=== PATIENT | male | born 1960 | race Caucasian/White ===

== ENCOUNTER 2017-03-20 12:19 | Inpatient (IN) ==
[2017-03-20] MEDS ORDERED: DUONEB (A & A) INH ONE (12:26)
[2017-03-20] MEDS ORDERED: SOLU-MEDROL IV ONE (12:26)
[2017-03-20 12:59] LABS: ALLEN TEST YES; BE 0.6 mmoll (-3.0-3.0); BLOOD TYPE ARTERIAL; DRAW SITE R RADIAL; METHB 1.1 % (0.0-1.5); O2(CT) 20.3 mL/dL (15.0-23.0); PCO2(98.6) 29 mmHg (35-45); PO2(98.6) 67 mmHg (60-100); SAMPLE BLOOD; SAO2 99.2 % (95.0-100.0); THB 15.2 g/dL (11.5-17.4)
--- NOTE | 2017-03-20 13:36 | ED EKG INTERP ---
This chart was entered by Sandra Alvarez Scribe, acting as scribe for Raul Hall MD. EKG Interpretation - EKG Time of EKG reading by physician:: 12:58 EKG Read and Signed by:: Raul Hall Rate: 93 Rhythm: nsr Leonard: normal QRS: LVH IA Interval: normal ST Wave: non-specific ST changes This chart was documented by the indicated scribe, (Sandra Alvarez Scribe) and accurately reflects the services I performed and decisions made by meRafael Wenli X, MD, as attested by the provider's signature.
[2017-03-20 13:55] LABS: MANUAL DIFF NEEDED? NO
[2017-03-20 13:55] LABS: URINE CULTURE NEEDED? NO; URINE MICRO REVIEW NEEDED? NO; URINE SOURCE CLEAN CATCH
[2017-03-20 14:00] LABS: BILIRUBIN URINE NEGATIVE (NEGATIVE); BLOOD URINE NEGATIVE (NEGATIVE); COLOR YELLOW; GLUCOSE URINE NEGATIVE (NEGATIVE); LEUKOCYTES URINE NEGATIVE (NEGATIVE); NITRITE URINE NEGATIVE (NEGATIVE); PH URINE 7.5; PROTEIN URINE TRACE mg/dL (NEGATIVE); SP GRAVITY URINE 1.021; TURBIDITY URINE CLEAR (CLEAR); UROBILINOGEN URINE NORMAL (NORMAL)
[2017-03-20 14:01] LABS: BASO% 0.5 % (0.0-0.8); EOS# 0.05 X1000 (0.0-0.7); EOS% 0.7 % (0.0-10.0); HEMOGLOBIN 16.1 g/dL (14.0-18.0); IMM GRAN# 0.04 X1000 (0.0-0.04); IMM GRAN% 0.5 % (0.0-0.5); LYMPH# 0.85 X1000 (1.2-3.4); LYMPH% 11.6 % (20.5-51.1); MCH 31.1 PG (27-31); MCHC 34.3 g/dL (33-37); MCV 90.7 FL (81-99); MONO# 0.49 X1000 (0.11-0.59); MONO% 6.7 % (1.7-9.3); MPV 10.6 FL (7.4-10.4); PLT 142 X1000 (130-400); RBC 5.18 XMIL (4.7-6.1)
[2017-03-20 14:01] LABS: UR EPITHELIAL CELLS <10 /HPF (<10); URINE BACTERIA NEGATIVE /HPF; URINE RBC <10 /HPF (<10); URINE WBC <10 /HPF (<10)
[2017-03-20 14:12] LABS: INR 0.97; PROTIME 10.2 Seconds (9.2-11.7); PTT 27.3 Seconds (22.0-36.0)
[2017-03-20 14:16] LABS: AGAP 16; ALBUMIN 4.5 g/dL (3.5-5.0); ALKALINE PHOSPHATASE 86 U/L (32-122); BUN 11 mg/dL (8-22); CALCIUM 8.5 mg/dL (8.8-10.2); CHLORIDE 101 mmol/L (98-107); COSMO 284; GOT 19 U/L (10-34); GPT 33 U/L (10-44); MAGNESIUM 1.8 mg/dL (1.5-2.7); POTASSIUM 3.3 mmol/L (3.5-5.1); SODIUM 142 mmol/L (136-145); TCO2 25 mmol/L (25-35); TOTAL BILIRUBIN 2.21 mg/dL (0.20-1.00); TOTAL PROTEIN 7.1 g/dL (6.3-8.3)
[2017-03-20 14:21] LABS: CK PROFILE 528 U/L (24-204)
--- NOTE | 2017-03-20 14:40 | Diag Imaging Result Document ---
PROCEDURE NAME: CHEST-2 VIEWS - 03/20/2017 CHEST X-RAY, 2 VIEWS: COMPARISON: None. FINDINGS: There is significant right hemidiaphragm elevation. The lungs are clear of infiltrate. Heart size is normal. No pneumothorax or pleural effusion. IMPRESSION: Nonspecific right hemidiaphragm elevation. Radames paralysis cannot be excluded.
[2017-03-20 14:42] LABS: CK INDEX 1.3 (0.0-2.5); CK-MB 6.98 ng/mL (0.0-5.0)
--- NOTE | 2017-03-20 15:12 | PROVIDER DOCUMENTATION ---
This chart was entered by Sandra Alvarez Scribe, acting as scribe for Raul Hall MD. HPI-Respiratory General - General Stated Complaint: SOB Time Seen by Provider: 03/20/17 12:26 Source: patient Allergies/Adverse Reactions: Patient Allergies Allergy/AdvReac Type Severity Reaction Status Date / Time No Known Allergies Allergy Verified 03/20/17 12:41 - History of Present Illness-Resp Nature of Presenting Problem: 56 y/o M presents to ED cc of SOB. Pt was brought via ambulance. Pt was seen at [facility] urgent care and brought to ED due to 02 stat and pneumonia. Pt states he had pneumonia in September and feels like he has not gotten over it. Pt does not where at home. Pt denies any CP. [facility] gave pt a steroid and brething treatment. Pt states he feels better now. On exam stat is 97%. Pt is alert and oriented. If possible pt does not want to to stay in hospital over night due to dog at home. Quality of Pain: reports: none Severity in ED: reports: mild Onset/Duration: reports: just prior to arrival Timing: reports: still present Exposure: reports: unknown cause Cough Quality/Degree: reports: mild Episode Frequency: other (in ) Current Respiratory Medication Therapy: Initiated see nurses note Modifying Factors: improves with: albuterol nebulizer, oxygen, rest, sitting upright Associated Symptoms: reports: cough, shortness of breath. denies: chest pain/ soreness, fever/chills Similar Symptoms Previously?: Yes Recently seen or treated by another doctor?: Yes Review of Systems - Adult - REVIEW OF SYSTEMS - ADULT Constitutional: denies: chills, fever Ears, Nose, Mouth & Throat: denies: ear pain, throat pain Cardiovascular: denies: chest pain, palpitations Respiratory: reports: cough, shortness of breath Gastrointestinal: denies: abdominal pain, diarrhea, nausea, vomiting Genitourinary: denies: discharge, frequency Musculoskeletal: denies: bone pain, back pain Neurological: denies: dizziness/vertigo, headache/migraines Past History - Adult - PAST MEDICAL HISTORY-ADULT Review of Records: reports: Old Records Reviewed, Nursing Assessment Review Respiratory: reports: COPD - IMMUNIZATION STATUS Childhood Immunizations: See Nurse Assessment Flu Vaccine: See Nurse Assessment - SOCIAL HISTORY Smoking: greater than 1 pack/day Provider spent 3-5 mins advising pt. on dangers of tobacco.: Discussed manners to quit use, and f/u contacts for add'l counseling. Substance Use: denies Alcohol Use Frequency: never Physical Exam-General - PHYSICAL EXAM-ADULT Initial Vital Signs Reviewed: Yes - CONSTITUTIONAL General Appearance: appears well, alert, no apparent distress, obese - EYES Eyes: pink conjunctivae - HEAD, EARS, NOSE, MOUTH & THROAT HENMT: moist mucous membranes, normal ENT inspection - RESPIRATORY Respiratory: chest non-tender, decreased breath sounds, increased rate - CARDIOVASCULAR Cardiovascular: normal peripheral pulses, regular rate, rhythm - GASTROINTESTINAL (ABDOMEN) Abdominal Exam: non tender, soft - MUSCULOSKELETAL Back Exam: no CVA tenderness, no vertebral tenderness Extremity: normal range of motion, non-tender, normal gait, pedal edema - SKIN Integumentary: normal color, normal turgor, warm/dry - NEUROLOGIC Neurologic: grossly normal, no motor/sensory deficits - PSYCHIATRIC Psych/Mental Status: oriented x 3 Progress - PLAN OF CARE/RESULTS Progress/Plan/Lab Results: Vital Signs - 8 hr 03/20/17 12:30 03/20/17 12:38 Temperature 98.2 F Pulse Rate 94 H 91 H Respiratory Rate 26 H 26 H Blood Pressure 165/94 O2 Sat by Pulse Oximetry 97 Laboratory Results - last 24 hr 03/20/17 03/20/17 03/20/17 12:50 13:24 13:35 WBC 7.32 RBC 5.18 Hgb 16.1 Hct 47.0 MCV 90.7 MCH 31.1 H MCHC 34.3 RDW Std Deviation 13.9 Plt Count 142 MPV 10.6 H Immature Gran % (Auto) 0.5 Neut % (Auto) 80.0 H Lymph % (Auto) 11.6 L Bibb % (Auto) 6.7 Eos % (Auto) 0.7 Baso % (Auto) 0.5 Immature Gran # (Auto) 0.04 Neut # (Auto) 5.85 Lymph # (Auto) 0.85 L Bibb # (Auto) 0.49 Eos # (Auto) 0.05 Baso # (Auto) 0.04 PT INR PTT (Actin FS) Specimen Type ARTERIAL Sample Site R RADIAL pH 7.50 H pCO2 29 L pO2 67 HCO3 25.3 Base Excess 0.6 Oxyhemoglobin 95.0 ABG O2 Sat (Calculated) 20.3 ABG O2 Saturation 99.2 ABG Carboxyhemoglobin 3.10 H ABG Methemoglobin 1.1 Davi Test YES A-a O2 Difference 46.0 Total Hemoglobin 15.2 Lactate 2.50 H FiO2 % 21.0 Sodium Potassium Chloride Carbon Dioxide Anion Gap BUN Creatinine Estimated GFR/1.73 m2 BUN/Creatinine Ratio Glucose Calculated Osmolality Calcium Magnesium Total Bilirubin AST ALT Alkaline Phosphatase Creatine Kinase Creatine Kinase Index CK-MB (CK-2) Troponin T Ksg-[id number]-Euouljzdrnn Pept Total Protein Albumin Globulin Albumin/Globulin Ratio Urine Source CLEAN CATCH Urine Color YELLOW Urine Turbidity CLEAR Urine pH 7.5 Ur Specific Mentcle 1.021 Urine Protein TRACE A Ur Glucose (Stick) NEGATIVE Ur Ketones (Stick) 20 A Urine Blood NEGATIVE Urine Nitrite NEGATIVE Urine Bilirubin NEGATIVE Urobilinogen Dipstick NORMAL Urine Leukocytes NEGATIVE Urine WBC (Auto) <10 Urine RBC (Auto) <10 U Epithel Cells (Auto) <10 Urine Bacteria (Auto) NEGATIVE 03/20/17 03/20/17 03/20/17 13:35 13:35 13:35 WBC RBC Hgb Hct MCV MCH MCHC RDW Std Deviation Plt Count MPV Immature Gran % (Auto) Neut % (Auto) Lymph % (Auto) Bibb % (Auto) Eos % (Auto) Baso % (Auto) Immature Gran # (Auto) Neut # (Auto) Lymph # (Auto) Bibb # (Auto) Eos # (Auto) Baso # (Auto) PT 10.2 INR 0.97 PTT (Actin FS) 27.3 Specimen Type Sample Site pH pCO2 pO2 HCO3 Base Excess Oxyhemoglobin ABG O2 Sat (Calculated) ABG O2 Saturation ABG Carboxyhemoglobin ABG Methemoglobin Davi Test A-a O2 Difference Total Hemoglobin Lactate FiO2 % Sodium 142 Potassium 3.3 L Chloride 101 Carbon Dioxide 25 Anion Gap 16 BUN 11 Creatinine 0.8 Estimated GFR/1.73 m2 > 60 BUN/Creatinine Ratio 14 Glucose 120 H Calculated Osmolality 284 Calcium 8.5 L Magnesium 1.8 Total Bilirubin 2.21 H AST 19 ALT 33 Alkaline Phosphatase 86 Creatine Kinase 528 H Creatine Kinase Index 1.3 CK-MB (CK-2) 6.98 H Troponin T [id number]-A-Jsaucjajvpr Pept 193 H Total Protein 7.1 Albumin 4.5 Globulin 2.6 Albumin/Globulin Ratio 1.7 Urine Source Urine Color Urine Turbidity Urine pH Ur Specific Mentcle Urine Protein Ur Glucose (Stick) Ur Ketones (Stick) Urine Blood Urine Nitrite Urine Bilirubin Urobilinogen Dipstick Urine Leukocytes Urine WBC (Auto) Urine RBC (Auto) U Epithel Cells (Auto) Urine Bacteria (Auto) 03/20/17 13:35 WBC RBC Hgb Hct MCV MCH MCHC RDW Std Deviation Plt Count MPV Immature Gran % (Auto) Neut % (Auto) Lymph % (Auto) Bibb % (Auto) Eos % (Auto) Baso % (Auto) Immature Gran # (Auto) Neut # (Auto) Lymph # (Auto) Bibb # (Auto) Eos # (Auto) Baso # (Auto) PT INR PTT (Actin FS) Specimen Type Sample Site pH pCO2 pO2 HCO3 Base Excess Oxyhemoglobin ABG O2 Sat (Calculated) ABG O2 Saturation ABG Carboxyhemoglobin ABG Methemoglobin Davi Test A-a O2 Difference Total Hemoglobin Lactate FiO2 % Sodium Potassium Chloride Carbon Dioxide Anion Gap BUN Creatinine Estimated GFR/1.73 m2 BUN/Creatinine Ratio Glucose Calculated Osmolality Calcium Magnesium Total Bilirubin AST ALT Alkaline Phosphatase Creatine Kinase Creatine Kinase Index CK-MB (CK-2) Troponin T < 0.010 Pmb-F-Yxufbcehbeu Pept Total Protein Albumin Globulin Albumin/Globulin Ratio Urine Source Urine Color Urine Turbidity Urine pH Ur Specific Mentcle Urine Protein Ur Glucose (Stick) Ur Ketones (Stick) Urine Blood Urine Nitrite Urine Bilirubin Urobilinogen Dipstick Urine Leukocytes Urine WBC (Auto) Urine RBC (Auto) U Epithel Cells (Auto) Urine Bacteria (Auto) Orders Category Date Time Status Cardiac Monitoring DIRECTED Care 03/20/17 12:26 Active Oxygen Therapy- ED Nursing DIRECTED Care 03/20/17 12:26 Active Saline Loc NOW Care 03/20/17 12:26 Active ANGIOGRAM/PULMONARY ARTERIES [CT] Stat Exams 03/20/17 15:09 Ordered CHEST-2 VIEWS [RAD] Stat Exams 03/20/17 12:26 Draft ABG [RESP] Routine Lab 03/20/17 12:50 Completed BLOOD CULTURE [BLDCUL] Stat Lab 03/20/17 13:12 Results CBC WITH ELECTRONIC DIFF [HEME] Stat Lab 03/20/17 13:35 Completed CK PROFILE [SP CHEM] Stat Lab 03/20/17 13:35 Completed COMPREHENSIVE METABOLIC PANEL [CHEM] Stat Lab 03/20/17 13:35 Completed MAGNESIUM [CHEM] Stat Lab 03/20/17 13:35 Completed PRO B-NATRIURETIC PEPTIDE Stat Lab 03/20/17 13:35 Completed PROTIME WITH INR [COAG] Stat Lab 03/20/17 13:35 Completed PTT [COAG] Stat Lab 03/20/17 13:35 Completed TROPONIN T Stat Lab 03/20/17 13:35 Completed UA NIMS W/REFLEX CULT [URINALYSIS] Stat Lab 03/20/17 13:24 Completed Albuterol 2.5MG/Ipratrop 0.5MG [Duoneb (A & A)] Med 03/20/17 12:26 Discontinued 3 ml INH NOW ONE Methylprednisolone Sod Succ [Solu-Medrol] Med 03/20/17 12:26 Discontinued 125 mg IV NOW ONE Aerosol Treatments Routine Oth 03/20/17 12:28 Completed Aerosol Treatments Stat Oth 03/20/17 12:28 Completed EKG [EKG] Stat Ther 03/20/17 12:26 Ordered Result Diagrams: 03/20/17 13:35 03/20/17 13:35 - REASSESSMENT Reassessment #1 Time Reassessed: 14:35 Status: unchanged (feeling SOB but better with 02. Pulmonary has been paged.) - XRAY 1 XRAY: Bilateral XRAY Study: Chest Impression: Abnormal (nonspecific right hemidiaphragm elevation. Radames paralysis cannot be excluded. - Dr. solano (radiologist)) XRAY Interpretation: see impression - CONSULTS/PCP/HOSPITALIST Notification #1 *Consult/PCP/Hospitalist*: (pulmonary) Time Discussed: 14:57 Consult Disposition: other (admit to hospitialist and will consult. Request CTA chest to be done and admit to hospitalist) Time Discussed: 15:10 Reason/Comments: Will admit to hospitalist Departure - Departure Time of Disposition Decision: 15:11 DIAGNOSIS: Phrenic nerve paralysis, SOB (shortness of breath) Disposition: ADMITTED INPATIENT 09 Certified Medical Emergency: Emergent Condition: Stable Referrals and Follow-Ups: None,PCP [Primary Care Provider] - - Critical Care Note This patient required my direct & personal management of CC.: No This chart was documented by the indicated scribe, (Sandra Alvarez Scribe) and accurately reflects the services I performed and decisions made by me, Raul Hall MD, as attested by the provider's signature.
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
--- NOTE | 2017-03-20 16:26 | Diag Imaging Result Document ---
PROCEDURE NAME: ANGIOGRAM/PULMONARY ARTERIES - 03/20/2017 CT OF THE CHEST WITH INTRAVENOUS CONTRAST: FINDINGS: There are no filling defects demonstrated in the pulmonary arteries. There is apparent atelectasis in the right lower lobe and middle lobe. Some scarring or minimal subsegmental atelectasis is also seen posteriorly in the right upper lobe. There is otherwise no evidence of focal pulmonary consolidation. There is no evidence of abnormal fluid collections. No acute abnormalities are demonstrated in the visualized portion of the abdomen. There are calcifications in the left main and left anterior descending coronary arteries. Severe degenerative change is present in both shoulder joints. IMPRESSION: Atelectatic changes present on the right. No evidence of pulmonary emboli.
[2017-03-20] MEDS ORDERED: NS 1,000 ML IV SCH (16:31)
[2017-03-20] MEDS ORDERED: TYLENOL PO PRN (16:31)
[2017-03-20] MEDS ORDERED: ZOFRAN IV PRN (16:31)
[2017-03-20] MEDS ORDERED: KLOR-CON PO ONE (16:33)
--- NOTE | 2017-03-20 18:29 | HISTORY AND PHYSICAL ---
HISTORY OF PRESENT ILLNESS: This is a 56-year-old. He states that for a year now, well he would say since November, he has felt like he was a little more short of breath. He feels like the pollen has made it worse, especially in the last month, particularly this last week he feels like he has increased dyspnea on exertion. He did not really describe so much orthopnea. No pedal edema or paroxysmal nocturnal dyspnea was mentioned. He had no pleuritic pain. He did not report any fever or chills. PAST MEDICAL HISTORY: 1. He hurt his left ankle, tore some ligaments. I think he said he had to have some surgical repair, it was pinned between 2 pallets. 2. Seasonal allergies. 3. Apparently he has been treated and has seen a psychiatrist for depression in the past. 4. Benign prostatic hypertrophy. He sees Dr. Pryor. He is on medications for prostatitis and prostate enlargement. PAST SURGICAL HISTORY: 1. He is status post appendectomy. 2. He has had right shoulder scoped, I believe this was in [place]. SOCIAL HISTORY: He quit smoking 12 years ago. History of alcohol just on occasion, maybe once a month. He has worked in the automotive industry and he thinks he has been around some of asbestos, but not sure about that. FAMILY HISTORY: Sister a couple weeks ago. He is not sure, he is estranged from the family, but he thinks it was a myocardial infarction. REVIEW OF SYSTEMS: Does not report any weight gain or loss.HEENT: Unremarkable. Respiratory: Increased work of breathing. Increased dyspnea on exertion and increased dyspnea at rest. Cardiovascular: No chest pain or tachy palpitations. GI/: No gross hematuria or dysuria. Musculoskeletal/Neurologic: No focal new complaints. He does have most trouble with arthralgia in his left ankle. Skin: Unremarkable. It looks like he may have a little sebaceous cyst on the left lateral eye. DIAGNOSTIC DATA: His pulmonary arteriogram: no PTE but right lower lobe atelectasis. His lab: White count 7320, hematocrit 47, platelet count 142,000. Chemistry; sodium 142, potassium 3.3, chloride 101, bicarb 25, BUN 11, creatinine 0.8, glucose 120, calcium 8.5, total bilirubin 2.21. ProBNP was 193, troponin less than 0.01. CPK was 528. Albumin 4.5. ProTime 10.2, PTT 27. Urinalysis unremarkable. Blood gases; pH is 7.50, pCO2 is 29, PO2 is 67, O2 saturation 99%. A-a gradient was 46. Met hemoglobin 1.1. FiO2 was room air for 21%. Chest x-ray: Nonspecific right hemidiaphragm elevation. Radames paralysis could not be excluded, and his pulmonary arteriogram, as mentioned, he had no PTE but he does have right lower lobe atelectasis. ASSESSMENT AND PLAN: 1. Right diaphragm elevation paresis. Not sure how long it has been going on or the cause of that. Dr. Solis has been evaluating, he is going to be put on BiPAP and see if we can improve his gas exchange. Note that he has an alkalosis, and it appears to be a respiratory alkalosis, but still hypoxic. We will put him on some empiric antibiotic, although we have no evidence that there is pneumonia involved. We will put him on some bronchodilators, albuterol, Atrovent, and we will put him on a steroid inhaler as well. 2. History of benign prostatic hypertrophy. Aware. Continue his current medication. 3. Questionable history of depression in the past. 4. Arthritis, most prominent in the left ankle. cc: Davi Shukla MD
[2017-03-20] MEDS: ROCEPHIN 1 GM/NS 1 GM/50 ML IVPB IV SCH (18:40)
[2017-03-20] MEDS: DUONEB (A & A) INH SCH ×2 (19:29→23:06)
[2017-03-20] MEDS: PULMICORT INH SCH (19:29)
[2017-03-20] MEDS: SOLU-MEDROL IV SCH (20:32)
[2017-03-21] MEDS: DUONEB (A & A) INH SCH ×2 (04:36→07:54)
[2017-03-21] MEDS: SOLU-MEDROL IV SCH ×3 (05:21→20:58)
[2017-03-21] MEDS: PRILOSEC PO SCH (06:02)
[2017-03-21 06:08] LABS: ALLEN TEST YES; BLOOD TYPE ARTERIAL; DRAW SITE R RADIAL; METHB 1.7 % (0.0-1.5); MODALITY BI PAP; O2(CT) 20.8 mL/dL (15.0-23.0); PCO2(98.6) 34 mmHg (35-45); PO2(98.6) 96 mmHg (60-100); SAMPLE BLOOD; SAO2 99.9 % (95.0-100.0); THB 15.4 g/dL (11.5-17.4); pH(98.6) 7.43 (7.35-7.45)
[2017-03-21 07:32] LABS: INR 1.03; PROTIME 10.8 Seconds (9.2-11.7); PTT 25.9 Seconds (22.0-36.0)
[2017-03-21 07:40] LABS: BASO% 0.1 % (0.0-0.8); HEMATOCRIT 45.2 % (42.0-52.0); HEMOGLOBIN 15.3 g/dL (14.0-18.0); IMM GRAN# 0.03 X1000 (0.0-0.04); IMM GRAN% 0.3 % (0.0-0.5); LYMPH# 0.52 X1000 (1.2-3.4); LYMPH% 4.6 % (20.5-51.1); MANUAL DIFF NEEDED? YES; MCH 30.9 PG (27-31); MCHC 33.8 g/dL (33-37); MCV 91.3 FL (81-99); MONO# 0.23 X1000 (0.11-0.59); PLT 155 X1000 (130-400); RBC 4.95 XMIL (4.7-6.1)
[2017-03-21] MEDS: PULMICORT INH SCH ×2 (07:54→19:03)
[2017-03-21 07:58] LABS: FREE T4 1.08 ng/dL (0.93-1.70)
[2017-03-21 08:03] LABS: AGAP 17; ALBUMIN 4.5 g/dL (3.5-5.0); ALKALINE PHOSPHATASE 81 U/L (32-122); BUN 10 mg/dL (8-22); CALCIUM 8.5 mg/dL (8.8-10.2); CHLORIDE 102 mmol/L (98-107); COSMO 286; GOT 16 U/L (10-34); GPT 27 U/L (10-44); HEMOGLOBIN A1C 5.2 % (4.8-6.0); MAGNESIUM 1.9 mg/dL (1.5-2.7); POTASSIUM 3.9 mmol/L (3.5-5.1); SODIUM 142 mmol/L (136-145); TCO2 23 mmol/L (25-35); TOTAL BILIRUBIN 1.66 mg/dL (0.20-1.00); TOTAL PROTEIN 6.6 g/dL (6.3-8.3)
[2017-03-21 08:11] LABS: BANDS 2 % (0-1); LYMPHS 4 % (21-51)
[2017-03-21] MEDS: LOVENOX SUBQ SCH (08:14)
--- NOTE | 2017-03-21 09:43 | Diag Imaging Result Document ---
PROCEDURE NAME: CHEST-2 VIEWS - 03/21/2017 TWO VIEWS OF THE CHEST: FINDINGS: The inspiration is better than on 03/20/2014, otherwise, there has been no significant change in the appearance of the chest. IMPRESSION: Stable chest.
[2017-03-21] MEDS ORDERED: ATIVAN IV PRN (10:17)
[2017-03-21] MEDS: XOPENEX NEB INH SCH ×5 (11:56→22:53)
[2017-03-21 12:15] LABS: CK INDEX 1.2 (0.0-2.5); CK-MB 7.33 ng/mL (0.0-5.0)
--- NOTE | 2017-03-21 13:30 | EKG Report ---
Test Performed on : 03/21/2017 12:44:39 PM Test Reason : tachycardia Blood Pressure : / mmHG Vent. Rate : 121 BPM Atrial Rate : 121 BPM P-R Int : 168 ms QRS Dur : 092 ms QT Int : 402 ms P-R-T Axes : 058 -27 095 degrees QTc Int : 570 ms Sinus tachycardia. Left ventricular hypertrophy with repolarization abnormality Abnormal ECG No previous ECGs available Confirmed by Kvng AQUINO, Tutu Martinez ([id number]) on 03/24/2017 7:29:22 AM
[2017-03-21] MEDS: NS NEB INH SCH (15:48)
--- NOTE | 2017-03-21 16:52 | ECHO REPORT ---
ORDER DATE: 03/21/2017 INTERPRETING PHYSICIAN: Dr. Luis Salas ECHOCARDIOGRAPHIC MEASUREMENTS: Interventricular septum: 1.2 cm. Left ventricular posterior wall: 1.5 cm. Diastolic diameter: 5.0 cm. Left atrium: 3.8 cm. Aortic root: 3.5 cm. SUMMARY OF THE 2-DIMENSIONAL IMAGIN. Normal left ventricular cavity size. Estimated ejection fraction of 65%. 2. Aortic valve leaflets are trileaflet. Mitral valve was normal. Tricuspid valve was normal. Pulmonic valve was normal. 3. There was trace pulmonary regurgitation. Trace tricuspid regurgitation. Peak velocity across the tricuspid valve less than 2 m/sec. By Doppler studies there is no aortic stenosis or regurgitation. 4. Anterior echo-free space suggestive of pericardial fat pad was noted. cc: MD Carito Santo MD
[2017-03-21] MEDS: ROCEPHIN 1 GM/NS 1 GM/50 ML IVPB IV SCH (17:41)
--- NOTE | 2017-03-21 18:10 | PROGRESS NOTE ---
DATE: 03/21/2017 SUBJECTIVE: The patient complains of severe shortness of breath. He states that he has not been coughing. He is also tachycardic. OBJECTIVE: Vital Signs: Temperature 97.8 degrees, blood pressure 138/75, heart rate 102, respirations 22, O2 saturations 97% on 4 L nasal cannula. General: This is a morbidly obese male lying in bed in no acute distress. Head: Normocephalic, atraumatic. Heart: S1, S2. Normal. Tachycardic. Lungs: Equal air entry bilaterally. No crackles. No rales. No wheezing. Abdomen: Positive bowel sounds. Soft, obese, nontender, nondistended. Extremities: No edema. No cyanosis. No calf tenderness. Neurologic: The patient is alert oriented x3. LABS: White blood cell count 11, hemoglobin 15, hematocrit 45, platelets 155,000. Sodium 142, potassium 3.9, chloride 102, CO2 23, BUN 10, creatinine 0.9, glucose 159, calcium 8.5. ASSESSMENT AND PLAN: 1. Acute hypoxemic respiratory failure. Will continue on supplemental oxygen, IV steroids and bronchodilator therapy. Pulmonary is following. 2. Morbid obesity. Aware. 3. Deep vein thrombosis prophylaxis. Continue on Lovenox. cc: Carito Shultz MD
[2017-03-21 18:57] LABS: CK INDEX 0.9 (0.0-2.5); CK-MB 9.92 ng/mL (0.0-5.0)
[2017-03-21] MEDS: COREG PO SCH (20:57)
[2017-03-21] MEDS ORDERED: ZOCOR PO SCH (21:00)
[2017-03-22] MEDS: SOLU-MEDROL IV SCH ×3 (05:00→20:22)
[2017-03-22] MEDS: LOVENOX SUBQ SCH (07:58)
[2017-03-22] MEDS: COREG PO SCH ×2 (07:59→20:22)
[2017-03-22] MEDS: ASPIRIN EC PO SCH (08:00)
[2017-03-22] MEDS: PRILOSEC PO SCH (08:00)
[2017-03-22] MEDS: PULMICORT INH SCH ×2 (08:18→19:38)
[2017-03-22] MEDS: XOPENEX NEB INH SCH ×5 (08:18→23:11)
[2017-03-22 08:29] LABS: BASO% 0.1 % (0.0-0.8); IMM GRAN# 0.05 X1000 (0.0-0.04); IMM GRAN% 0.3 % (0.0-0.5); LYMPH# 0.65 X1000 (1.2-3.4); LYMPH% 4.5 % (20.5-51.1); MANUAL DIFF NEEDED? YES; MCH 31.3 PG (27-31); MCHC 33.3 g/dL (33-37); MCV 93.9 FL (81-99); MONO# 0.72 X1000 (0.11-0.59); MPV 11.8 FL (7.4-10.4); NEUT% 90.1 % (42.2-75.2); PLT 179 X1000 (130-400); RBC 4.79 XMIL (4.7-6.1)
[2017-03-22 09:11] LABS: AGAP 14; ALBUMIN 4.2 g/dL (3.5-5.0); ALKALINE PHOSPHATASE 68 U/L (32-122); BUN 14 mg/dL (8-22); CALCIUM 8.7 mg/dL (8.8-10.2); CHLORIDE 103 mmol/L (98-107); CK PROFILE 913 U/L (24-204); COSMO 285; GOT 21 U/L (10-34); GPT 23 U/L (10-44); MAGNESIUM 2.2 mg/dL (1.5-2.7); POTASSIUM 4.6 mmol/L (3.5-5.1); SODIUM 141 mmol/L (136-145); TCO2 24 mmol/L (25-35); TOTAL BILIRUBIN 1.05 mg/dL (0.20-1.00); TOTAL PROTEIN 6.5 g/dL (6.3-8.3)
[2017-03-22 09:31] LABS: CK INDEX 1.1 (0.0-2.5); CK-MB 10.05 ng/mL (0.0-5.0)
--- NOTE | 2017-03-22 10:13 | Diag Imaging Result Document ---
PROCEDURE NAME: CHEST-2 VIEWS - 03/22/2017 FRONTAL AND LATERAL CHEST, TWO VIEWS: COMPARISON: 03/21/2017. FINDINGS: The lungs are well expanded. The right hemidiaphragm is elevated. This is similar to prior exam. No cardiomegaly. No pleural effusions. The vessels are not distended. IMPRESSION: No acute abnormality.
[2017-03-22 10:47] LABS: BANDS 12 % (0-1); LARGE PLATELETS 1+; LYMPHS 4 % (21-51); MONO 8 % (1-9)
--- NOTE | 2017-03-22 14:34 | PROGRESS NOTE ---
DATE: 03/22/2017 SUBJECTIVE: The patient states that he feels a little bit better this morning. He did sleep with BiPAP last night and stated that he slept well. He does still complain of shortness of breath with minimal exertion. OBJECTIVE: Vital Signs: Temperature 99 degrees, blood pressure 155/98, heart rate 106, respirations 21, O2 saturations 95% on 4 L nasal cannula. General: This is a morbidly obese male lying in bed in no acute distress. Head: Normocephalic, atraumatic. Heart: S1, S2. Normal. Tachycardic. Lungs: Equal air entry bilaterally. No crackles, no rales, no wheezing. Abdomen: Positive bowel sounds. Soft, obese, nontender, nondistended. Extremities: No edema, no cyanosis, no calf tenderness. Neuro: The patient is alert and oriented x3. LABS: White blood cell count 14, hemoglobin 15, hematocrit 45, platelets 179,000. Sodium 141, potassium 4.6, chloride 103, CO2 24, BUN 14, creatinine 0.9, glucose 158. ASSESSMENT AND PLAN: 1. Acute hypoxemic respiratory failure. Continue on bronchodilator therapy, IV steroids and IV antibiotics. Pulmonary is following. 2. Hypertension. Will add Norvasc. Continue on Coreg. 3. Morbid obesity. Aware. 4. Deep vein thrombosis prophylaxis. Continue on Lovenox. cc: Carito Shultz MD
[2017-03-22] MEDS: ROCEPHIN 1 GM/NS 1 GM/50 ML IVPB IV SCH (16:49)
[2017-03-22] MEDS: NORVASC PO SCH (20:22)
[2017-03-23] MEDS: XOPENEX NEB INH SCH ×6 (03:33→23:15)
[2017-03-23 05:18] LABS: HEMATOCRIT 44.7 % (42.0-52.0); HEMOGLOBIN 15.4 g/dL (14.0-18.0); IMM GRAN# 0.07 X1000 (0.0-0.04); IMM GRAN% 0.5 % (0.0-0.5); LYMPH% 4.5 % (20.5-51.1); MANUAL DIFF NEEDED? YES; MCH 31.9 PG (27-31); MCHC 34.5 g/dL (33-37); MCV 92.5 FL (81-99); MONO# 0.78 X1000 (0.11-0.59); MONO% 5.8 % (1.7-9.3); MPV 11.2 FL (7.4-10.4); NEUT% 89.2 % (42.2-75.2); PLT 173 X1000 (130-400); RBC 4.83 XMIL (4.7-6.1)
[2017-03-23 05:30] LABS: LYMPHS 6 % (21-51); MONO 2 % (1-9)
[2017-03-23 05:34] LABS: AGAP 13; ALBUMIN 3.8 g/dL (3.5-5.0); ALKALINE PHOSPHATASE 63 U/L (32-122); BUN 18 mg/dL (8-22); CALCIUM 8.5 mg/dL (8.8-10.2); CHLORIDE 101 mmol/L (98-107); COSMO 286; GOT 19 U/L (10-34); GPT 25 U/L (10-44); MAGNESIUM 2.3 mg/dL (1.5-2.7); SODIUM 141 mmol/L (136-145); TCO2 27 mmol/L (25-35); TOTAL BILIRUBIN 1.09 mg/dL (0.20-1.00)
[2017-03-23] MEDS: PRILOSEC PO SCH (06:17)
[2017-03-23] MEDS: SOLU-MEDROL IV SCH ×3 (06:17→20:11)
[2017-03-23] MEDS: PULMICORT INH SCH ×2 (07:58→19:45)
[2017-03-23] MEDS: COREG PO SCH ×2 (09:34→20:12)
[2017-03-23] MEDS: LOVENOX SUBQ SCH (09:34)
[2017-03-23] MEDS: NORVASC PO SCH ×2 (09:34→20:12)
[2017-03-23] MEDS: ASPIRIN EC PO SCH (09:34)
[2017-03-23] MEDS: ROCEPHIN 1 GM/NS 1 GM/50 ML IVPB IV SCH (16:49)
--- NOTE | 2017-03-23 17:13 | PROGRESS NOTE ---
DATE: 03/23/2017 SUBJECTIVE: The patient states that his shortness of breath is slowly improving. He still has shortness of breath with exertion. OBJECTIVE: Vital Signs: Temperature 97.6 degrees, blood pressure 155/102, respirations 20, heart rate 95, O2 saturation is 95% on 4 L nasal cannula. General: This is a morbidly obese male, sitting in a chair, no acute distress. Head: Normocephalic, atraumatic. Heart: S1, S2. Normal. Regular rate and rhythm. Lungs: Clear auscultation bilaterally. No crackles. No rales. Abdomen: Positive bowel sounds. Soft, obese, nontender, nondistended. Extremities: No edema. No cyanosis. No calf tenderness. Neurologic: The patient is alert and oriented x3. LABS: White blood cell count 13, hemoglobin 15, hematocrit 44, platelets 173,000. Sodium 141, potassium 4, chloride 101, CO2 27, BUN 18, creatinine 0.9, glucose 158, total protein 6. ASSESSMENT AND PLAN: 1. Acute hypoxemic respiratory failure. Improved. Continue on the current medications. Pulmonary is following. Will order home O2 evaluation. The patient will most likely require oxygen at home at this time. 2. Morbid obesity. The patient has been encouraged to lose weight. 3. Hypertension. Continue on Coreg and Norvasc. 4. Deep vein thrombosis prophylaxis. Continue on Lovenox. 5. Disposition. The patient can be discharged home once cleared by the dimpling machine operator. cc: Carito Shultz MD
[2017-03-24] MEDS: XOPENEX NEB INH SCH ×3 (04:05→11:20)
[2017-03-24 05:41] LABS: AGAP 10; ALBUMIN 3.7 g/dL (3.5-5.0); ALKALINE PHOSPHATASE 62 U/L (32-122); BUN 15 mg/dL (8-22); CALCIUM 8.1 mg/dL (8.8-10.2); CHLORIDE 101 mmol/L (98-107); COSMO 282; GOT 15 U/L (10-34); GPT 27 U/L (10-44); MAGNESIUM 2.5 mg/dL (1.5-2.7); SODIUM 139 mmol/L (136-145); TCO2 28 mmol/L (25-35); TOTAL BILIRUBIN 1.08 mg/dL (0.20-1.00); TOTAL PROTEIN 5.8 g/dL (6.3-8.3)
[2017-03-24 05:50] LABS: BASO% 0.1 % (0.0-0.8); HEMATOCRIT 45.1 % (42.0-52.0); HEMOGLOBIN 15.5 g/dL (14.0-18.0); IMM GRAN# 0.09 X1000 (0.0-0.04); IMM GRAN% 0.8 % (0.0-0.5); LYMPH# 0.61 X1000 (1.2-3.4); LYMPH% 5.3 % (20.5-51.1); MANUAL DIFF NEEDED? NO; MCH 31.4 PG (27-31); MCHC 34.4 g/dL (33-37); MCV 91.3 FL (81-99); MONO# 0.79 X1000 (0.11-0.59); MONO% 6.9 % (1.7-9.3); MPV 11.3 FL (7.4-10.4); NEUT% 86.9 % (42.2-75.2); PLT 181 X1000 (130-400); RBC 4.94 XMIL (4.7-6.1)
[2017-03-24] MEDS: SOLU-MEDROL IV SCH ×2 (06:00→13:36)
--- NOTE | 2017-03-24 06:17 | EKG Report ---
Test Performed on : 03/22/2017 06:14:20 AM Test Reason : tachycardia Blood Pressure : / mmHG Vent. Rate : 075 BPM Atrial Rate : 075 BPM P-R Int : 136 ms QRS Dur : 094 ms QT Int : 408 ms P-R-T Axes : 019 -01 068 degrees QTc Int : 455 ms Normal sinus rhythm. Nonspecific T wave abnormality Abnormal ECG When compared with ECG of 21-MAR-2017 19:10, (Unconfirmed) Vent. rate has decreased BY 39 BPM Nonspecific T wave abnormality has replaced inverted T waves in Lateral leads Confirmed by Tutu Calderon MD ([id number]) on 03/24/2017 7:31:38 AM
--- NOTE | 2017-03-24 06:17 | EKG Report ---
Test Performed on : 03/21/2017 7:10:09 PM Test Reason : dyspnea Blood Pressure : / mmHG Vent. Rate : 114 BPM Atrial Rate : 114 BPM P-R Int : 158 ms QRS Dur : 084 ms QT Int : 336 ms P-R-T Axes : 067 018 225 degrees QTc Int : [address] \T\ T wave abnormality, consider lateral ischemia Abnormal ECG When compared with ECG of 21-MAR-2017 12:44, (Unconfirmed) No significant change was found Confirmed by Kvng AQUINO, Tutu Martinez ([id number]) on 03/24/2017 7:31:03 AM
[2017-03-24] MEDS: PRILOSEC PO SCH (06:46)
[2017-03-24] MEDS: NS NEB INH SCH ×2 (07:40→11:20)
[2017-03-24] MEDS: PULMICORT INH SCH (07:40)
[2017-03-24] MEDS: NORVASC PO SCH (08:58)
[2017-03-24] MEDS: ASPIRIN EC PO SCH (08:58)
[2017-03-24] MEDS: COREG PO SCH (08:58)
[2017-03-24] MEDS: LOVENOX SUBQ SCH (08:58)
[2017-03-24 12:14] VITALS: BP 165/97
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
== END 2017-03-24 16:40 | disposition home health service (06) ==
LOC: ED 12:19 → SUATTDRO 16:59 → 3N 16:59 → 3S 03-21 15:21
PROVIDERS: ATTEND Internal Medicine